=== PATIENT | male | born 2000 | race Two or more races ===

== ENCOUNTER 2024-03-27 14:37 | Emergency (ER) | payer OTHER, BC ==
[~2024-03-27] VITALS: Ht 175.3 cm; Wt 90.1 kg
[2024-03-27 15:05] VITALS: BP 141/97; PULSE 82; RESP 20; TEMP 98.3; O2SAT 98
[2024-03-27] MEDS: methylPREDNISolone SOD SUCC 125 MG/2 ML VL IM ONE (15:27)
[2024-03-27] MEDS: KETOROLAC TROMETH 30 MG/ML 1ML VIAL IM ONE (15:28)
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
[2024-03-27] MEDS ORDERED: LIDO5DIS21 TOP (16:37)
[2024-03-27] MEDS ORDERED: CYCL-839 PO (16:37)
[2024-03-27] MEDS ORDERED: IBUP-1456 PO (16:37)
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
== END 2024-03-27 16:42 | disposition home or self-care (01) ==
LOC: ER 14:37
DX: M54.50 Low back pain, unspecified (principal); M54.2 Cervicalgia; V89.2XXA Person injured in unspecified motor-vehicle accident, traffic, initial encounter; Y93.I9 Activity, other involving external motion; Y92.411 Interstate highway as the place of occurrence of the external cause; Y99.8 Other external cause status
CPT/HCPCS: 72040; 72100; 96372; 99284; J1885; J2919